=== PATIENT | male | born 1975 | race Caucasian/White ===

== ENCOUNTER 2017-04-07 12:04 | Emergency (ER) | payer OTHER ==
[2017-04-07 13:01] VITALS: BP 142/116
--- NOTE | 2017-04-07 13:57 | UC ---
Skin Complaint HPI - HPI Summary HPI Summary: pt presents with c/o yellow jacket stings/bites to left ankle and thig just superior to knee. Pt reports that he was stung 2 days ago, taking OTC antihistamine and with no improvement with erythema or swelling. Also, pt c/o "boil to rigth side butt cheek and circular erythematous, non tender area on right side of end of penis. Denies, pain, discharge or exposure to STDs - History of Current Complaint Chief Complaint: UCGeneralIllness Time Seen by Provider: 04/07/17 12:38 Stated Complaint: BEE STINGS Hx Obtained From: Patient Onset/Duration: Sudden Onset - 04/05/17, Lasting Days - 04/05/17, Still Present, Worse Since - onset Skin Exposure Onset/Duration: Days Ago - 04/05/17 Onset Severity: Mild Current Severity: Mild Pain Intensity: 6 Pain Scale Used: 0-10 Numeric Location: Discrete - left ankle, left thigh superior to anterior knee, rigth side mid buttock, and tip of penis Character: Swelling, Pruritus, Redness, Painful Aggravating: Touch Alleviating: Nothing Associated Signs & Symptoms: Positive: Tenderness Related History: Insect Bite/Sting - Allergy/Home Medications Allergies/Adverse Reactions: Allergies Allergy/AdvReac Type Severity Reaction Status Date / Time Bee Venom Allergy Swelling Verified 04/07/17 12:29 Home Medications: Home Medications diPHENhydraMINE 2% CREAM(NF) [Benadryl 2% CREAM (NF)] 1 applic TOPICAL TID PRN 04/07/17 [History Confirmed 04/07/17] diPHENhydraMINE PO* [Benadryl PO 25 MG TAB*] 25 mg PO Q6H PRN 04/07/17 [History Confirmed 04/07/17] Review of Systems Constitutional: Negative Skin: Rash - erythema, swelling, tenderness at insect sting areas and non tender , no drainage to right buttock and distal end of penis, Other - patient has history of psoriasis, Eyes: Negative ENT: Negative Respiratory: Negative Cardiovascular: Negative Gastrointestinal: Negative Genitourinary: Other - ertyhematous area distal end of penis. ~ nickel size Motor: Negative Neurovascular: Negative Musculoskeletal: Negative Neurological: Negative Psychological: Negative All Other Systems Reviewed And Are Negative: Yes PMH/Surg Hx/FS Hx/Imm Hx Previously Healthy: Yes - hx of psoriasis - Surgical History Surgical History: Yes Surgery Procedure, Year, and Place: [place] [facility] [place], [place], [place] - Family History Known Family History: Positive: Renal Disease - negative for kidney stones - Social History Occupation: Employed Full-time Lives: With Family Alcohol Use: Weekly Substance Use Type: None Smoking Status (MU): Never Smoked Tobacco Amount Used/How Often: 6 MONTHS WHEN WAS 22 Have You Smoked in the Last Year: No - Immunization History Most Recent Tetanus Shot: "It's been years." Physical Exam Triage Information Reviewed: Yes Appearance: Well-Appearing Vital Signs: Initial Vital Signs Temp 99.1 F 04/07/17 12:25 Pulse 94 04/07/17 12:25 Resp 16 04/07/17 12:25 BP 142/116 04/07/17 12:25 Pulse Ox 99 04/07/17 12:25 Vital Signs Reviewed: Yes Eye Exam: Normal ENT Exam: Normal Neck exam: Normal Respiratory Exam: Normal Cardiovascular Exam: Normal Abdominal Exam: Normal Musculoskeletal Exam: Other Musculoskeletal: Positive: Edema @ - non pitting left ankle Neurological Exam: Normal Psychological Exam: Normal Skin Exam: Other - erythema, mild swelling, and tenderness left ankle and left thigh distal anterior; healing wound on right mid buttocks, erythematou, non vessicular non painful nickel size area on distal end of penis. multiple psoriac lesions on torso, buttocks and upper thighs. Course/Dx - Course Course Of Treatment: I discussed with ept the possiblity of STD exposure and pt denies and declined testing. I also, discussed that the erythematous area on pt's penis may be a psoriatic lesion and to follow up with PCP . - Differential Diagnoses - Skin Complaint Differential Diagnoses: Cellulitis, Contact Dermatitis, Other - insect sting cellulitis psoriasis - Diagnoses Provider Diagnoses: cellulitis. insect sting. psoriasis Discharge - Discharge Plan Condition: Stable Disposition: HOME Prescriptions: Sulfamethox/Trimethoprim DS* [Bactrim DS 800/160 TAB*] 1 tab PO Q12H #14 tab predniSONE TAB* [Deltasone TAB*] 40 mg PO DAILY #6 tab Patient Education Materials: Cellulitis (ED), Insect Bite or Sting (ED), Psoriasis (ED) Referrals: Nic Cosme MD [Primary Care Provider] - Additional Instructions: Please continue to OTC antihistamine as directed on the bottle. Additionally, please follow up with your PCP as needed or return to clinic.
== END 2017-04-07 12:58 | disposition home or self-care (01) ==
LOC: UCCORT 12:04
DX: T63.461A Toxic effect of venom of wasps, accidental (unintentional), initial encounter (principal); S70.362A Insect bite (nonvenomous), left thigh, initial encounter; L03.116 Cellulitis of left lower limb; Y92.9 Unspecified place or not applicable; L40.9 Psoriasis, unspecified
CPT/HCPCS: 99212; G0463